=== PATIENT | female | born 1950 | race Caucasian/White ===

== ENCOUNTER 2017-02-23 21:23 | Inpatient (IN) | payer OTHER ==
[~2017-02-23] VITALS: Ht 175.3 cm; Wt 58.1 kg
[2017-02-23 21:23] VITALS: BP_SYST 142
[2017-02-23] MEDS ORDERED: IPRATROPIUM/ALBUTEROL SULFATE 3 ML AMPUL.NEB INH ONE (21:45)
[2017-02-23] MEDS ORDERED: methylPREDNISolone SOD SUCC/PF 62.5 MG/ML VIAL IVP ONE (21:45)
[2017-02-23 22:49] LABS: ANION GAP 10 (5-15); CALCIUM 8.5 mg/dL (8.4-11.0); CHLORIDE 96 mmol/L (98-107); CREATININE 0.68 mg/dL (0.55-1.30); GLUCOSE 115 mg/dL (70-99); POTASSIUM 3.6 mmol/L (3.5-5.1); SODIUM SERUM 133 mmol/L (136-145); UREA NITROGEN, BLOOD 13 mg/dL (8-21)
[2017-02-23 22:50] LABS: BASOPHILS % (AUTO) 0.1 % (0.0-2.0); HEMATOCRIT 44.3 % (36-48); HEMOGLOBIN 14.8 g/dL (12.0-16.0); LYMPHOCYTES # (AUTO) 0.8 K/uL (1.0-5.5); LYMPHOCYTES % (AUTO) 13.3 % (20.5-51.5); MEAN CORPUSCULAR HEMOGLOBIN 29 pg (27-31); MEAN CORPUSCULAR HGB CONC 34 % (32-36); MEAN CORPUSCULAR VOLUME 88 fL (79.0-98.0); MONOCYTES # (AUTO) 0.5 K/uL (0.0-1.0); MONOCYTES % (AUTO) 7.7 % (1.7-9.3); NEUTROPHILS # (AUTO) 4.9 K/uL (1.8-7.7); NEUTROPHILS % (AUTO) 78.9 % (40.0-70.0); RED BLOOD CELL COUNT(AUTO) 5.06 MIL/uL (4.2-6.2); RED CELL DISTRIBUTION WIDTH 13.1 % (9.0-15.0); WHITE BLOOD COUNT (AUTO) 6.2 K/uL (4.8-10.8)
[2017-02-23 22:52] LABS: ALBUMIN 3.7 g/dL (3.4-4.8)
[2017-02-23 23:15] LABS: PLATELET COUNT (AUTO) 42 K/uL (130-430)
[2017-02-23] MEDS ORDERED: FLUT1DIS5 INH (23:18)
[2017-02-23] MEDS ORDERED: PRO20 PO (23:18)
[2017-02-23] MEDS ORDERED: FOLI-59 PO (23:18)
[2017-02-23 23:23] LABS: ALANINE AMINOTRANSFERASE 31 U/L (12-78); ASPARTATE AMINOTRANSFERASE 38 U/L (10-37); TOTAL BILIRUBIN 0.3 mg/dL (0.0-1.0)
[2017-02-23 23:26] LABS: GFR AFRICAN AMERICAN 112 mL/min (>90)
[2017-02-24] VITALS (7 sets, daily range): BP systolic 110–115
[2017-02-24] MEDS ORDERED: ACETAMINOPHEN 325 MG TABLET PO PRN (01:00)
[2017-02-24] MEDS ORDERED: HYDROcodone/ACETAMIN 10-325 MG TAB PO PRN (01:00)
[2017-02-24] MEDS ORDERED: MORPHINE 2 MG/ML INJ. SYRINGE IVP PRN (01:00)
[2017-02-24] MEDS ORDERED: SIMETHICONE 80 MG TAB.CHEW PO PRN (01:00)
[2017-02-24] MEDS ORDERED: LevALBUTEROL HCL 1.25 MG/0.5 ML *CONC.* VIAL.NEB (XOPENEX CONC.) INH PRN (01:00)
[2017-02-24] MEDS ORDERED: LORazepam 2 MG/ML VIAL IVP PRN (01:00)
[2017-02-24] MEDS ORDERED: POTASSIUM CHLORIDE 20 MEQ TAB.PRT.SR PO PRN (01:00)
[2017-02-24] MEDS ORDERED: BISACODYL 10 MG/SUPPOSITORY RC PRN (01:00)
[2017-02-24] MEDS ORDERED: ONDANSETRON HCL 4 MG/2 ML VIAL IVP PRN (01:00)
[2017-02-24] MEDS ORDERED: ZOLPIDEM TARTRATE 5 MG TABLET PO PRN (01:00)
[2017-02-24] MEDS: LevALBUTEROL HCL 1.25 MG/0.5 ML *CONC.* VIAL.NEB (XOPENEX CONC.) INH SCH ×4 (01:36→19:35)
[2017-02-24] MEDS: NACL 0.9% 1,000 ML IV SCH ×2 (01:40→17:09)
[2017-02-24] MEDS: OSELTAMIVIR PHOSPHATE 75 MG CAPSULE PO SCH ×3 (01:40→21:38)
[2017-02-24] MEDS ORDERED: LEVOFLOXACIN 500 MG/D5W 100 ML IV ONE (01:48)
[2017-02-24] MEDS: LEVOFLOXACIN 500 MG/D5W 100 ML IV SCH (02:01)
[2017-02-24 02:04] LABS: FREE T4 (FREE THYROXINE) 1.3 ng/dl (0.8-1.5); PHOSPHORUS 3.2 mg/dL (2.7-4.5); THYROID STIMULATING HORMONE 4.15 uIu/mL (0.36-3.74)
[2017-02-24] MEDS: BUDESONIDE 0.5 MG/2 ML AMPUL.NEB INH SCH ×2 (08:01→19:51)
[2017-02-24] MEDS: methylPREDNISolone SOD SUCC 40 MG/ML VIAL IVP SCH ×2 (08:57→21:39)
[2017-02-24] MEDS: DOCUSATE SODIUM 100 MG CAPSULE PO SCH ×2 (09:00→21:39)
[2017-02-24] MEDS: guaiFENesin ER 600 MG TAB PO SCH (21:39)
[2017-02-25] MEDS: LevALBUTEROL HCL 1.25 MG/0.5 ML *CONC.* VIAL.NEB (XOPENEX CONC.) INH SCH ×2 (01:00→07:43)
[2017-02-25 01:03] VITALS: BP_SYST 108
[2017-02-25] MEDS: LEVOFLOXACIN 500 MG/D5W 100 ML IV SCH (01:31)
[2017-02-25] MEDS ORDERED: LevALBUTEROL HCL 1.25 MG/0.5 ML *CONC.* VIAL.NEB (XOPENEX CONC.) INH ONE (07:08)
[2017-02-25 07:45] LABS: HEMATOCRIT 42.7 % (36-48); HEMOGLOBIN 14.1 g/dL (12.0-16.0); LYMPHOCYTES # (AUTO) 0.5 K/uL (1.0-5.5); LYMPHOCYTES % (AUTO) 8.7 % (20.5-51.5); MEAN CORPUSCULAR HEMOGLOBIN 30 pg (27-31); MEAN CORPUSCULAR HGB CONC 33 % (32-36); MEAN CORPUSCULAR VOLUME 90 fL (79.0-98.0); MONOCYTES # (AUTO) 0.3 K/uL (0.0-1.0); NEUTROPHILS # (AUTO) 4.5 K/uL (1.8-7.7); NEUTROPHILS % (AUTO) 86.3 % (40.0-70.0); PLATELET COUNT (AUTO) 59 K/uL (130-430); RED BLOOD CELL COUNT(AUTO) 4.76 MIL/uL (4.2-6.2); RED CELL DISTRIBUTION WIDTH 13.6 % (9.0-15.0); WHITE BLOOD COUNT (AUTO) 5.3 K/uL (4.8-10.8)
[2017-02-25 08:00] VITALS: BP_SYST 106
[2017-02-25] MEDS: BUDESONIDE 0.5 MG/2 ML AMPUL.NEB INH SCH (08:12)
[2017-02-25 08:16] LABS: CALCIUM 8.8 mg/dL (8.4-11.0); CREATININE 0.46 mg/dL (0.55-1.30)
[2017-02-25 08:23] LABS: PHOSPHORUS 3.4 mg/dL (2.7-4.5)
[2017-02-25] MEDS: methylPREDNISolone SOD SUCC 40 MG/ML VIAL IVP SCH (08:53)
[2017-02-25] MEDS: DOCUSATE SODIUM 100 MG CAPSULE PO SCH ×2 (08:53→08:58)
[2017-02-25] MEDS: guaiFENesin ER 600 MG TAB PO SCH (08:53)
[2017-02-25] MEDS: OSELTAMIVIR PHOSPHATE 75 MG CAPSULE PO SCH (08:53)
[2017-02-25] MEDS ORDERED: FOLIC ACID E PO SCH (09:00)
[2017-02-25] MEDS ORDERED: MULTIVITAMIN PO SCH (09:00)
[2017-02-25] MEDS ORDERED: CENTRUM PO SCH (09:00)
[2017-02-25] MEDS ORDERED: IRON PO SCH (09:00)
[2017-02-25] MEDS ORDERED: [UNRECOGNIZED DRUG - OTHER] PO SCH (09:00)
[2017-02-25] MEDS ORDERED: FLUoxetine HCL 20 MG CAPSULE (PROzac) PO SCH (09:00)
[2017-02-25] MEDS ORDERED: ALBMDI INH (09:02)
[2017-02-25] MEDS ORDERED: OSEL75CA PO (09:02)
[2017-02-25 09:37] VITALS: BP_SYST 106; BP_SYST 112
[2017-02-25 10:22] VITALS: BP_SYST 112
[2017-02-25 23:06] LABS: HEMOGLOBIN A1C 5.5 % (4.8-5.6)
[2017-02-26 01:23] LABS: T4 (THYROXINE) 8.9 ug/dL (4.5-12.0)
== END 2017-02-25 12:35 | disposition home or self-care (01) | DRG 140 ==
LOC: SED 21:23 → SMU 02-24 00:52
PROVIDERS: ADMIT Family Medicine; ATTEND Family Medicine
DX: J44.0 Chronic obstructive pulmonary disease with (acute) lower respiratory infection (principal); J96.01 Acute respiratory failure with hypoxia; J10.89 Influenza due to other identified influenza virus with other manifestations; E87.1 Hypo-osmolality and hyponatremia; J44.1 Chronic obstructive pulmonary disease with (acute) exacerbation; F17.210 Nicotine dependence, cigarettes, uncomplicated; D69.6 Thrombocytopenia, unspecified; J20.9 Acute bronchitis, unspecified; M62.81 Muscle weakness (generalized); F32.9 Major depressive disorder, single episode, unspecified; Z88.2 Allergy status to sulfonamides; Z98.891 History of uterine scar from previous surgery
CPT/HCPCS: 36415; 36600; 71010; 80048; 80053; 80061; 82150-TC; 82803-TC; 83036; 83605; 83690-TC; 83735-TC; 83880; 84100-TC; 84436; 84439; 84443-TC; 84479; 84484; 85025; 86710; 87040-TC; 93005; 94640; 94760; 96374; 99285; G9035; J1030; J1956; J2930; J7030

== ENCOUNTER 2019-11-04 23:13 | Emergency (ER) | payer MEDICARE, OTHER ==
[~2019-11-04 23:13] MED LIST: ALBMDI INH; FLUT1DIS5 INH; FOLI-59 PO; OSEL75CA PO; PRO20 PO
--- NOTE | 2019-11-04 23:25 | NUR ---
Pt did not want to wait. Patient left without being triaged. No further treatment provided. ER MD aware.
== END 2019-11-04 23:25 | disposition left against medical advice (07) ==
LOC: SED 23:13
DX: Z20.828 Contact with and (suspected) exposure to other viral communicable diseases (principal); Z53.21 Procedure and treatment not carried out due to patient leaving prior to being seen by health care provider